=== PATIENT | male | born 1990 | race African-American/Black ===

== ENCOUNTER 2018-11-22 23:39 | Emergency (ER) | payer OTHER ==
[~2018-11-22] VITALS: Ht 180.3 cm; Wt 101.0 kg
[2018-11-23 05:19] LABS: HEMATOCRIT 49.1 % (42.0-52.0); HEMOGLOBIN 16.6 g/dL (14.0-18.0); MEAN CORPUSCULAR HEMOGLOBIN 29.8 pg (28.0-32.0); PLATELET 235 x1000/uL (130-400); RED BLOOD CELL COUNT 5.57 mill/uL (4.7-6.1); RED CELL DISTRIBUTION WIDTH 13.6 % (11.6-14.6)
[2018-11-23 05:38] LABS: CHLORIDE 102 mEq/L (98-107)
[2018-11-23] MEDS ORDERED: IBUPROFEN 600MG TABLET PO ONE (06:30)
[2018-11-23 09:09] VITALS: BP 136/87
== END 2018-11-23 09:13 | disposition home or self-care (01) ==
LOC: ER 11-23 01:04
DX: L03.113 Cellulitis of right upper limb (principal); Z87.891 Personal history of nicotine dependence
CPT/HCPCS: 36415; 73130; 83880; 85027; 93971; 99284